=== PATIENT | female | born 1965 | race Caucasian/White ===

== ENCOUNTER 2021-04-19 09:51 | Outpatient (CLI) | payer OTHER, SELFPAY ==
[2021-04-19 10:15] VITALS: BP 112/71; PULSE 67; RESP 22; O2SAT 93
[2021-04-19 10:33] VITALS: BP 100/66; PULSE 67; RESP 22; O2SAT 92
[2021-04-19 11:31] VITALS: BP 102/65; PULSE 70; RESP 19; O2SAT 92
== END 2021-04-19 11:52 | disposition home or self-care (01) ==
LOC: OPS 09:56
PROVIDERS: Visit Provider Nurse Practitioner
DX: U07.1 COVID-19 (principal)
CPT/HCPCS: 96365

== ENCOUNTER 2021-04-22 18:04 | Inpatient (IN) | payer OTHER, SELFPAY ==
[2021-04-22] VITALS (7 sets, daily range): BP systolic 70–117; BP diastolic 43–78; PULSE 103–148; RESP 18–39; TEMP 35.7; O2SAT 85–97; BMI 20.5
--- NOTE | 2021-04-22 18:07 | XRR_ITS ---
PROCEDURE INFORMATION: Exam: XR Chest Exam date and time: 04/22/2021 6:07 PM Age: 55 years old Clinical indication: Dyspnea; Additional info: SOB, Per report, the patient is COVID-19 positive. TECHNIQUE: Imaging protocol: XR of the chest. Views: 1 view. COMPARISON: No relevant prior studies available. FINDINGS: Tubes, catheters and devices: There is an endotracheal tube with the tip 4.8 cm above the marika. Lungs: Extensive, bilateral interstitial and alveolar and areas of ground-glass opacification. Findings are commonly seen in COVID-19 pneumonia. Pleural spaces: No pleural effusion. No pneumothorax. Heart/Mediastinum: There is an enteric tube with the tip with the tip in the fundus of the stomach and the proximal port in the lower esophagus, recommend advancing the tube 5-6 cm. The cardiac silhouette is mildly enlarged. Mediastinal contours are unremarkable. Bones/joints: Elongated C7 transverse processes bilaterally. XR/XR chest 1V portable [id number] IMPRESSION: 1. Extensive, bilateral interstitial and alveolar and areas of ground-glass opacification. Findings are commonly seen in COVID-19 pneumonia. Per report, the patient is COVID-19 positive. Recommend clinical correlation. Recommend followup chest x-ray to ensure resolution. 2. There is an enteric tube with the tip with the tip in the fundus of the stomach and the proximal port in the lower esophagus, recommend advancing the tube 5-6 cm. 3. There is an endotracheal tube with the tip 4.8 cm above the marika. 4. Incidental/nonacute findings are listed in the report. COMMENTS: Urgent results were discussed with GEO Whitaker on 04/22/2021 at 9:04 PM CDT.
--- NOTE | 2021-04-22 18:07 | ECG_ITS ---
[facility] Test Date: 2021-04-22 Pat Name: Brandi Alcantara Department: Room: Gender: Female Biometric Screener: : 1965 Requested By: Andres Bolaños Order Number: [id number] Castro MD: Thanh Su M.D. Measurements Intervals [place] Rate: 129 P: 50 NE: 176 QRS: 7 QRSD: 88 T: 15 QT: 336 QTc: 493 Interpretive Statements SINUS TACHYCARDIA WITH FREQUENT VENTRICULAR PREMATURE COMPLEXES LOW QRS VOLTAGE IN PRECORDIAL LEADS [QRS DEFLECTION < 1.0 mV IN CHEST LEADS] NONSPECIFIC T-WAVE ABNORMALITY ABNORMAL RHYTHM ECG No previous ECG available for comparison Electronically Signed On 04-23-2021 17:29:04 CDT by Thanh Su M.D. [email or web address]
--- NOTE | 2021-04-22 18:11 | ED_ITS ---
Documented by User: Andres Bolaños MD 04/23/21 05:05 HPI - SOB/Dyspnea General: Source: patient and EMS Mode of arrival: EMS Limitations: no limitations History of Present Illness: HPI Narrative: 55-year-old female who diagnosed with Covid roughly 5 to 6 days ago. States she got the monoclonal antibody infusion 2 days ago. States that today she is getting much more short of breath. EMS has her on a nonrebreather she is satting 60% on that. Patient is tachypneic. She denies any chest pain. She has had body aches and fever. She history of smoking no history of known lung disease. Associated symptoms: Reports fever(s); Deny abdominal pain, chest pain, nausea or vomiting Review of Systems Const: Reports: fever(s), chills and body aches Eyes: Denies: blurry vision or eye discomfort ENMT: Denies: throat pain or dental pain Card: Denies: chest pain Resp: Reports: dyspnea and non-productive cough GI: Denies: abdominal pain, nausea, vomiting or diarrhea : Denies: dysuria Musc: Denies: neck pain or back pain Skin/Breast: Denies: rash Neuro: Denies: headache(s) Psych: Denies: depression Mohan/Lymph: Denies: easy bruising All/Imm: Denies: urticaria Physical Exam Const: COMMON NORMALS: patient oriented x3 GENERAL APPEARANCE: in distress and diaphoretic HENMT: COMMON NORMALS: normocephalic and atraumatic HEAD & SCALP: normocephalic and atraumatic Eye: COMMON NORMALS: Equal, round and reactive pupils present and EOMs intact bilaterally PUPIL: Yes Equal, round and reactive pupils present Neck/C-Spine: COMMON NORMALS: full ROM and supple Chest: COMMONS NORMALS: normal inspection of the chest and normal palpation of entire chest wall Resp: EFFORT & INSPECTION: Yes tachypneic, Yes respiratory distress and Yes labored AUSCULTATION: rales Cardio: COMMON NORMALS: regular rhythm and No murmurs present (Cardio) RATE: tachycardic RHYTHM: regular rhythm GI: COMMON NORMALS: Normal to inspection, nondistended, normoactive bowel sounds present, Soft to palpation, non-tender and no masses PALPATION: Yes Soft to palpation Extremity: COMMON NORMALS: normal to inspection and full ROM Neuro: COMMON NORMALS: patient oriented x3, moves all extremities and no focal motor deficits Psych: COMMON NORMALS: mental status grossly normal, Normal thought process present and cooperative THOUGHT PROCESS: Normal thought process present Skin: COMMON NORMALS: no rashes or lesions noted and no wounds GENERAL SKIN EXAM: no rashes or lesions noted Procedures Arterial Line Time Out Performed: Yes Size (Gauge): 18 Technique Used: guide wire technique Post-Procedure: line sutured into place Patient Tolerated Procedure: well Complications: none Site: right and femoral Course Vital Signs: Vital signs: Vital Signs Temperature 98.9 F 04/23/21 02:12 Pulse Rate 120 H 04/23/21 05:06 Respiratory Rate 18 04/23/21 05:06 Blood Pressure 99/60 04/23/21 05:06 Pulse Oximetry 94 04/23/21 05:06 MDM - SOB/Dyspnea MDM Narrative: Medical decision making narrative: Patient presents here with severe Covid pneumonia with sepsis and septic shock. Patient had central line placed and intubated and has been on multiple pressors. Patient been seen by hospitals down the ER is currently in ICU hold. Lab Data: Labs: Lab Results 04/22/21 04/22/21 04/22/21 Range/Units 18:15 18:15 18:15 WBC 22.9 H (4.0-10.0) 10^3/ uL RBC 4.26 (4.1-5.3) 10^6/u L Hgb 13.7 (11.5-15.3) g/dL Hct 45.4 (37.0-47.0) % MCV 106.6 H (81-99) fL MCH 32.2 (28.0-34.0) pg MCHC 30.2 (30.0-36.0) g/dL RDW 12.3 (12.1-15.1) % Plt Count 434 H (130-400) 10^3/c mm MPV 9.6 (7.4-10.4) fL Neut % (Auto) 69.1 % Lymph % (Auto) 22.6 % [place] % (Auto) 3.8 % Eos % (Auto) 0.1 % Baso % (Auto) 0.3 % Neut # (Auto) 15.81 H (1.8-7.7) 10^3/u L Lymph # (Auto) 5.2 H (0.8-4.8) 10^3/u L [place] # (Auto) 0.9 (0.2-0.9) 10^3/u L Eos # (Auto) 0.0 (0.0-0.8) 10^3/u L Baso # (Auto) 0.1 (0.0-0.1) 10^3/u L Nucleated RBC % (a uto) 0.4 % Nucleated RBCs # 0.1 /100WBC D-Dimer >= 20.00 H (0-0.59) ug/mIFE U Specimen Type Arterial Sample Site Radial, right ABG pH 7.10 L* (7.35-7.45) ABG pCO2 29.7 L (35-45) mmHg ABG pO2 79.5 L (80.0-100.0) mmH g ABG HCO3 9.3 L (22-26) mmol/L ABG O2 Saturation ABG Base Excess -19.1 L (-2.0-2.0) mmol/ L Jose Test Pos A-a O2 Gradient (5-10) mmHg Hematocrit 42.3 (37-47) % Hgb O2 Saturation (95-100) % Carboxyhemoglobin (0.4-20.1) %THgb Methemoglobin (0.4-1.5) % Total Hemoglobin (12-16) g/dL Ionized Calcium (1.1-1.4) mmol/L O2 Delivery Device Bipap FiO2 100.0 % Tidal Volume PEEP cmH20 Registered Public Surveyor ID Gd Sodium (136-145) mmol/L Potassium (3.5-5.1) mmol/L Chloride (98-107) mmol/L Carbon Dioxide (22-29) mmol/L Anion Gap (5-19) BUN (6-20) mg/dL Creatinine (0.5-0.9) mg/dL GFR Calculation (90-130) mL/min Glucose (65-115) mg/dL Calculated Osmolal ity (285-295) mOsm/k g Lactic Acid (0.5-2.2) mmol/L Lactate (0.5-2.2) mmol/L Calcium (8.5-10.5) mg/dL Ferritin (15-150) ng/mL Total Bilirubin (0.15-1.2) mg/dL AST (0-32) U/L ALT (0-33) U/L Alkaline Phosphata se (35-105) IU/L C-Reactive Protein (0.0-4.9) mg/L NT-Pro-B Natriuret Pep (0-125) pg/mL Total Protein (6.6-8.7) g/dL Albumin (3.5-5.2) g/dL Globulin (1.3-4.6) g/dL Procalcitonin (0-0.5) ng/mL 04/22/21 04/22/21 04/22/21 Range/Units 18:15 18:15 20:25 WBC (4.0-10.0) 10^3/ uL RBC (4.1-5.3) 10^6/u L Hgb (11.5-15.3) g/dL Hct (37.0-47.0) % MCV (81-99) fL MCH (28.0-34.0) pg MCHC (30.0-36.0) g/dL RDW (12.1-15.1) % Plt Count (130-400) 10^3/c mm MPV (7.4-10.4) fL Neut % (Auto) % Lymph % (Auto) % [place] % (Auto) % Eos % (Auto) % Baso % (Auto) % Neut # (Auto) (1.8-7.7) 10^3/u L Lymph # (Auto) (0.8-4.8) 10^3/u L [place] # (Auto) (0.2-0.9) 10^3/u L Eos # (Auto) (0.0-0.8) 10^3/u L Baso # (Auto) (0.0-0.1) 10^3/u L Nucleated RBC % (a uto) % Nucleated RBCs # /100WBC D-Dimer (0-0.59) ug/mIFE U Specimen Type Sample Site ABG pH (7.35-7.45) ABG pCO2 (35-45) mmHg ABG pO2 (80.0-100.0) mmH g ABG HCO3 (22-26) mmol/L ABG O2 Saturation ABG Base Excess (-2.0-2.0) mmol/ L Jose Test A-a O2 Gradient (5-10) mmHg Hematocrit (37-47) % Hgb O2 Saturation (95-100) % Carboxyhemoglobin (0.4-20.1) %THgb Methemoglobin (0.4-1.5) % Total Hemoglobin (12-16) g/dL Ionized Calcium (1.1-1.4) mmol/L O2 Delivery Device FiO2 % Tidal Volume PEEP cmH20 Registered Public Surveyor ID Sodium 141 (136-145) mmol/L Potassium 4.0 (3.5-5.1) mmol/L Chloride 96 L (98-107) mmol/L Carbon Dioxide 9 L (22-29) mmol/L Anion Gap 40.0 H (5-19) BUN 15 (6-20) mg/dL Creatinine 1.0 H (0.5-0.9) mg/dL GFR Calculation 57.4 L (90-130) mL/min Glucose 283 H (65-115) mg/dL Calculated Osmolal ity 303 H (285-295) mOsm/k g Lactic Acid 18.0 H* (0.5-2.2) mmol/L Lactate 9.9 H* (0.5-2.2) mmol/L Calcium 8.4 L (8.5-10.5) mg/dL Ferritin 1433 H (15-150) ng/mL Total Bilirubin 0.7 (0.15-1.2) mg/dL AST 45 H (0-32) U/L ALT 44 H (0-33) U/L Alkaline Phosphata se 108 H (35-105) IU/L C-Reactive Protein 105.0 H (0.0-4.9) mg/L NT-Pro-B Natriuret Pep 6302 H (0-125) pg/mL Total Protein 6.7 (6.6-8.7) g/dL Albumin 3.7 (3.5-5.2) g/dL Globulin 3.0 (1.3-4.6) g/dL Procalcitonin 1.68 H (0-0.5) ng/mL 04/23/21 04/23/21 04/23/21 Range/Units 01:10 04:20 04:20 WBC 23.6 H (4.0-10.0) 10^3/ uL RBC 3.97 L (4.1-5.3) 10^6/u L Hgb 12.9 (11.5-15.3) g/dL Hct 44.0 (37.0-47.0) % MCV 110.8 H (81-99) fL MCH 32.5 (28.0-34.0) pg MCHC 29.3 L (30.0-36.0) g/dL RDW 12.8 (12.1-15.1) % Plt Count 248 (130-400) 10^3/c mm MPV 9.9 (7.4-10.4) fL Neut % (Auto) 85.4 % Lymph % (Auto) 5.6 % [place] % (Auto) 3.5 % Eos % (Auto) 0.0 % Baso % (Auto) 0.7 % Neut # (Auto) 20.18 H (1.8-7.7) 10^3/u L Lymph # (Auto) 1.3 (0.8-4.8) 10^3/u L [place] # (Auto) 0.8 (0.2-0.9) 10^3/u L Eos # (Auto) 0.0 (0.0-0.8) 10^3/u L Baso # (Auto) 0.2 H (0.0-0.1) 10^3/u L Nucleated RBC % (a uto) 0.9 % Nucleated RBCs # 0.2 /100WBC D-Dimer (0-0.59) ug/mIFE U Specimen Type Sample Site ABG pH (7.35-7.45) ABG pCO2 (35-45) mmHg ABG pO2 (80.0-100.0) mmH g ABG HCO3 (22-26) mmol/L ABG O2 Saturation ABG Base Excess (-2.0-2.0) mmol/ L Jose Test A-a O2 Gradient (5-10) mmHg Hematocrit (37-47) % Hgb O2 Saturation (95-100) % Carboxyhemoglobin (0.4-20.1) %THgb Methemoglobin (0.4-1.5) % Total Hemoglobin (12-16) g/dL Ionized Calcium (1.1-1.4) mmol/L O2 Delivery Device FiO2 % Tidal Volume PEEP cmH20 Registered Public Surveyor ID Sodium 141 139 (136-145) mmol/L Potassium 4.9 5.9 H (3.5-5.1) mmol/L Chloride 100 100 (98-107) mmol/L Carbon Dioxide 13 L 14 L (22-29) mmol/L Anion Gap 32.9 H 30.9 H (5-19) BUN 14 17 (6-20) mg/dL Creatinine 1.4 H 1.7 H (0.5-0.9) mg/dL GFR Calculation 38.9 L 31.1 L (90-130) mL/min Glucose 279 H 298 H (65-115) mg/dL Calculated Osmolal ity 303 H 301 H (285-295) mOsm/k g Lactic Acid (0.5-2.2) mmol/L Lactate (0.5-2.2) mmol/L Calcium 7.2 L 7.2 L (8.5-10.5) mg/dL Ferritin (15-150) ng/mL Total Bilirubin 1.5 H (0.15-1.2) mg/dL AST 4316 H (0-32) U/L ALT 2620 H (0-33) U/L Alkaline Phosphata se 109 H (35-105) IU/L C-Reactive Protein (0.0-4.9) mg/L NT-Pro-B Natriuret Pep (0-125) pg/mL Total Protein 5.2 L D (6.6-8.7) g/dL Albumin 2.7 L (3.5-5.2) g/dL Globulin 2.5 (1.3-4.6) g/dL Procalcitonin (0-0.5) ng/mL 04/23/21 04/23/21 Range/Units 04:20 05:15 WBC (4.0-10.0) 10^3/ uL RBC (4.1-5.3) 10^6/u L Hgb (11.5-15.3) g/dL Hct (37.0-47.0) % MCV (81-99) fL MCH (28.0-34.0) pg MCHC (30.0-36.0) g/dL RDW (12.1-15.1) % Plt Count (130-400) 10^3/c mm MPV (7.4-10.4) fL Neut % (Auto) % Lymph % (Auto) % [place] % (Auto) % Eos % (Auto) % Baso % (Auto) % Neut # (Auto) (1.8-7.7) 10^3/u L Lymph # (Auto) (0.8-4.8) 10^3/u L [place] # (Auto) (0.2-0.9) 10^3/u L Eos # (Auto) (0.0-0.8) 10^3/u L Baso # (Auto) (0.0-0.1) 10^3/u L Nucleated RBC % (a uto) % Nucleated RBCs # /100WBC D-Dimer (0-0.59) ug/mIFE U Specimen Type Arterial Sample Site Femoral, right ABG pH 7.10 L* (7.35-7.45) ABG pCO2 57.0 H (35-45) mmHg ABG pO2 96.0 (80.0-100.0) mmH g ABG HCO3 17.6 L (22-26) mmol/L ABG O2 Saturation 94.9 ABG Base Excess -12.5 L (-2.0-2.0) mmol/ L Jose Test Neg A-a O2 Gradient 71.1 H (5-10) mmHg Hematocrit 41.9 (37-47) % Hgb O2 Saturation 93.6 L (95-100) % Carboxyhemoglobin 0.5 (0.4-20.1) %THgb Methemoglobin 0.9 (0.4-1.5) % Total Hemoglobin 13.7 (12-16) g/dL Ionized Calcium 0.9 L (1.1-1.4) mmol/L O2 Delivery Device Vent FiO2 100.0 % Tidal Volume 0.42 PEEP 12.0 cmH20 Registered Public Surveyor ID ellpe Sodium 137.0 (136-145) mmol/L Potassium 5.8 H (3.5-5.1) mmol/L Chloride (98-107) mmol/L Carbon Dioxide (22-29) mmol/L Anion Gap (5-19) BUN (6-20) mg/dL Creatinine (0.5-0.9) mg/dL GFR Calculation (90-130) mL/min Glucose 361.0 H (65-115) mg/dL Calculated Osmolal ity (285-295) mOsm/k g Lactic Acid (0.5-2.2) mmol/L Lactate 6.9 H* (0.5-2.2) mmol/L Calcium (8.5-10.5) mg/dL Ferritin (15-150) ng/mL Total Bilirubin (0.15-1.2) mg/dL AST (0-32) U/L ALT (0-33) U/L Alkaline Phosphata se (35-105) IU/L C-Reactive Protein (0.0-4.9) mg/L NT-Pro-B Natriuret Pep (0-125) pg/mL Total Protein (6.6-8.7) g/dL Albumin (3.5-5.2) g/dL Globulin (1.3-4.6) g/dL Procalcitonin (0-0.5) ng/mL Imaging Data^: CXR: Attestation: I personally reviewed and interpreted this imaging study as follows: Radiologist's impression: [address] [place] [address] XRay Report Signed Patient: Brandi Alcantara Unit #: [id number] : 1965 Age/Sex: 55 / F ADM Date: 04/22/21 Loc: ER Room/Bed: Attending Dr: Ordering Provider/Ordering MD: Andres Bolaños MD Date of Service: 04/22/21 Procedure(s): XR chest 1V portable [id number] Accession Number(s): [id number] Report Number: [id number] PROCEDURE INFORMATION: Exam: XR Chest Exam date and time: 04/22/2021 9:03 PM Age: 55 years old Clinical indication: Device placement; Picc; Additional info: Central line TECHNIQUE: Imaging protocol: XR of the chest. Views: 1 view. COMPARISON: CR (CHEST, ) 04/22/2021 7:08 PM FINDINGS: Tubes, catheters and devices: Interval placement of a right internal jugular central line with the tip in the SVC. The enteric tube has been advanced, the tip is now at the GE junction. Recommend advancing an additional 3-4 cm. There is an endotracheal tube with the tip 4.1 cm above the marika. Lungs: Extensive, bilateral interstitial and alveolar and areas of ground-glass opacification are stable. Findings are commonly seen in COVID-19 pneumonia. Pleural spaces: No pleural effusion. No pneumothorax. Heart/Mediastinum: Stable mild enlargement of the cardiac silhouette. Mediastinal contours are unremarkable. Bones/joints: Unremarkable for age. XR/XR chest 1V portable [id number] IMPRESSION: 1. Extensive, bilateral interstitial and alveolar and areas of ground-glass opacification are stable. Findings are commonly seen in COVID-19 pneumonia. Per report, the patient is COVID-19 positive. Recommend clinical correlation. Recommend followup chest x-ray to ensure resolution. 2. Interval placement of a right internal jugular central line with the tip in the SVC. 3. Incidental/nonacute findings are listed in the report. Dictated By: Daisy Bowen MD Signed By: Daisy Bowen MD Signed Date/Time: 04/22/212120 DD/ 19 EKG Data^: EKG 1: Attestation: I personally reviewed and interpreted this EKG as follows: EKG Interpretation Date: 04/22/21 EKG interpretation time: 18:21 Interpretation: sinus tach hr [address] or t wave abnormalities qrs 85 qtc 412 Critical Care Time Critical Care Time: Critical Care Time: Yes Total Critical Care Time: 65 Attestation: This case had a high probability of a clinically significant, sudden, or life threatening deterioration of this patient's condition which required my full and direct attention, intervention and personal management. Discharge Plan Discharge Patient Disposition: Admitted As Inpatient Clinical Impression: Pneumonia due to COVID-19 virus, Respiratory failure, Septic shock Condition: Stable Coding Level of Care Code ED Stacker Driver for Chg Fwd Exam Comprehensive Documented by User: Luz Elena Cisneros MD 04/23/21 05:26 Course Vital Signs: Vital signs: Vital Signs Temperature 98.9 F 04/23/21 02:12 Pulse Rate 120 H 04/23/21 05:06 Respiratory Rate 18 04/23/21 05:06 Blood Pressure 99/60 04/23/21 05:06 Pulse Oximetry 94 04/23/21 05:06 MDM - SOB/Dyspnea Lab Data: Labs: Lab Results 04/22/21 04/22/21 04/22/21 Range/Units 18:15 18:15 18:15 WBC 22.9 H (4.0-10.0) 10^3/ uL RBC 4.26 (4.1-5.3) 10^6/u L Hgb 13.7 (11.5-15.3) g/dL Hct 45.4 (37.0-47.0) % MCV 106.6 H (81-99) fL MCH 32.2 (28.0-34.0) pg MCHC 30.2 (30.0-36.0) g/dL RDW 12.3 (12.1-15.1) % Plt Count 434 H (130-400) 10^3/c mm MPV 9.6 (7.4-10.4) fL Neut % (Auto) 69.1 % Lymph % (Auto) 22.6 % [place] % (Auto) 3.8 % Eos % (Auto) 0.1 % Baso % (Auto) 0.3 % Neut # (Auto) 15.81 H (1.8-7.7) 10^3/u L Lymph # (Auto) 5.2 H (0.8-4.8) 10^3/u L [place] # (Auto) 0.9 (0.2-0.9) 10^3/u L Eos # (Auto) 0.0 (0.0-0.8) 10^3/u L Baso # (Auto) 0.1 (0.0-0.1) 10^3/u L Nucleated RBC % (a uto) 0.4 % Nucleated RBCs # 0.1 /100WBC D-Dimer >= 20.00 H (0-0.59) ug/mIFE U Specimen Type Arterial Sample Site Radial, right ABG pH 7.10 L* (7.35-7.45) ABG pCO2 29.7 L (35-45) mmHg ABG pO2 79.5 L (80.0-100.0) mmH g ABG HCO3 9.3 L (22-26) mmol/L ABG O2 Saturation ABG Base Excess -19.1 L (-2.0-2.0) mmol/ L Jose Test Pos A-a O2 Gradient (5-10) mmHg Hematocrit 42.3 (37-47) % Hgb O2 Saturation (95-100) % Carboxyhemoglobin (0.4-20.1) %THgb Methemoglobin (0.4-1.5) % Total Hemoglobin (12-16) g/dL Ionized Calcium (1.1-1.4) mmol/L O2 Delivery Device Bipap FiO2 100.0 % Tidal Volume PEEP cmH20 Registered Public Surveyor ID Gd Sodium (136-145) mmol/L Potassium (3.5-5.1) mmol/L Chloride (98-107) mmol/L Carbon Dioxide (22-29) mmol/L Anion Gap (5-19) BUN (6-20) mg/dL Creatinine (0.5-0.9) mg/dL GFR Calculation (90-130) mL/min Glucose (65-115) mg/dL Calculated Osmolal ity (285-295) mOsm/k g Lactic Acid (0.5-2.2) mmol/L Lactate (0.5-2.2) mmol/L Calcium (8.5-10.5) mg/dL Ferritin (15-150) ng/mL Total Bilirubin (0.15-1.2) mg/dL AST (0-32) U/L ALT (0-33) U/L Alkaline Phosphata se (35-105) IU/L C-Reactive Protein (0.0-4.9) mg/L NT-Pro-B Natriuret Pep (0-125) pg/mL Total Protein (6.6-8.7) g/dL Albumin (3.5-5.2) g/dL Globulin (1.3-4.6) g/dL Procalcitonin (0-0.5) ng/mL 04/22/21 04/22/21 04/22/21 Range/Units 18:15 18:15 20:25 WBC (4.0-10.0) 10^3/ uL RBC (4.1-5.3) 10^6/u L Hgb (11.5-15.3) g/dL Hct (37.0-47.0) % MCV (81-99) fL MCH (28.0-34.0) pg MCHC (30.0-36.0) g/dL RDW (12.1-15.1) % Plt Count (130-400) 10^3/c mm MPV (7.4-10.4) fL Neut % (Auto) % Lymph % (Auto) % [place] % (Auto) % Eos % (Auto) % Baso % (Auto) % Neut # (Auto) (1.8-7.7) 10^3/u L Lymph # (Auto) (0.8-4.8) 10^3/u L [place] # (Auto) (0.2-0.9) 10^3/u L Eos # (Auto) (0.0-0.8) 10^3/u L Baso # (Auto) (0.0-0.1) 10^3/u L Nucleated RBC % (a uto) % Nucleated RBCs # /100WBC D-Dimer (0-0.59) ug/mIFE U Specimen Type Sample Site ABG pH (7.35-7.45) ABG pCO2 (35-45) mmHg ABG pO2 (80.0-100.0) mmH g ABG HCO3 (22-26) mmol/L ABG O2 Saturation ABG Base Excess (-2.0-2.0) mmol/ L Jose Test A-a O2 Gradient (5-10) mmHg Hematocrit (37-47) % Hgb O2 Saturation (95-100) % Carboxyhemoglobin (0.4-20.1) %THgb Methemoglobin (0.4-1.5) % Total Hemoglobin (12-16) g/dL Ionized Calcium (1.1-1.4) mmol/L O2 Delivery Device FiO2 % Tidal Volume PEEP cmH20 Registered Public Surveyor ID Sodium 141 (136-145) mmol/L Potassium 4.0 (3.5-5.1) mmol/L Chloride 96 L (98-107) mmol/L Carbon Dioxide 9 L (22-29) mmol/L Anion Gap 40.0 H (5-19) BUN 15 (6-20) mg/dL Creatinine 1.0 H (0.5-0.9) mg/dL GFR Calculation 57.4 L (90-130) mL/min Glucose 283 H (65-115) mg/dL Calculated Osmolal ity 303 H (285-295) mOsm/k g Lactic Acid 18.0 H* (0.5-2.2) mmol/L Lactate 9.9 H* (0.5-2.2) mmol/L Calcium 8.4 L (8.5-10.5) mg/dL Ferritin 1433 H (15-150) ng/mL Total Bilirubin 0.7 (0.15-1.2) mg/dL AST 45 H (0-32) U/L ALT 44 H (0-33) U/L Alkaline Phosphata se 108 H (35-105) IU/L C-Reactive Protein 105.0 H (0.0-4.9) mg/L NT-Pro-B Natriuret Pep 6302 H (0-125) pg/mL Total Protein 6.7 (6.6-8.7) g/dL Albumin 3.7 (3.5-5.2) g/dL Globulin 3.0 (1.3-4.6) g/dL Procalcitonin 1.68 H (0-0.5) ng/mL 04/23/21 04/23/21 04/23/21 Range/Units 01:10 04:20 04:20 WBC 23.6 H (4.0-10.0) 10^3/ uL RBC 3.97 L (4.1-5.3) 10^6/u L Hgb 12.9 (11.5-15.3) g/dL Hct 44.0 (37.0-47.0) % MCV 110.8 H (81-99) fL MCH 32.5 (28.0-34.0) pg MCHC 29.3 L (30.0-36.0) g/dL RDW 12.8 (12.1-15.1) % Plt Count 248 (130-400) 10^3/c mm MPV 9.9 (7.4-10.4) fL Neut % (Auto) 85.4 % Lymph % (Auto) 5.6 % [place] % (Auto) 3.5 % Eos % (Auto) 0.0 % Baso % (Auto) 0.7 % Neut # (Auto) 20.18 H (1.8-7.7) 10^3/u L Lymph # (Auto) 1.3 (0.8-4.8) 10^3/u L [place] # (Auto) 0.8 (0.2-0.9) 10^3/u L Eos # (Auto) 0.0 (0.0-0.8) 10^3/u L Baso # (Auto) 0.2 H (0.0-0.1) 10^3/u L Nucleated RBC % (a uto) 0.9 % Nucleated RBCs # 0.2 /100WBC D-Dimer (0-0.59) ug/mIFE U Specimen Type Sample Site ABG pH (7.35-7.45) ABG pCO2 (35-45) mmHg ABG pO2 (80.0-100.0) mmH g ABG HCO3 (22-26) mmol/L ABG O2 Saturation ABG Base Excess (-2.0-2.0) mmol/ L Jose Test A-a O2 Gradient (5-10) mmHg Hematocrit (37-47) % Hgb O2 Saturation (95-100) % Carboxyhemoglobin (0.4-20.1) %THgb Methemoglobin (0.4-1.5) % Total Hemoglobin (12-16) g/dL Ionized Calcium (1.1-1.4) mmol/L O2 Delivery Device FiO2 % Tidal Volume PEEP cmH20 Registered Public Surveyor ID Sodium 141 139 (136-145) mmol/L Potassium 4.9 5.9 H (3.5-5.1) mmol/L Chloride 100 100 (98-107) mmol/L Carbon Dioxide 13 L 14 L (22-29) mmol/L Anion Gap 32.9 H 30.9 H (5-19) BUN 14 17 (6-20) mg/dL Creatinine 1.4 H 1.7 H (0.5-0.9) mg/dL GFR Calculation 38.9 L 31.1 L (90-130) mL/min Glucose 279 H 298 H (65-115) mg/dL Calculated Osmolal ity 303 H 301 H (285-295) mOsm/k g Lactic Acid (0.5-2.2) mmol/L Lactate (0.5-2.2) mmol/L Calcium 7.2 L 7.2 L (8.5-10.5) mg/dL Ferritin (15-150) ng/mL Total Bilirubin 1.5 H (0.15-1.2) mg/dL AST 4316 H (0-32) U/L ALT 2620 H (0-33) U/L Alkaline Phosphata se 109 H (35-105) IU/L C-Reactive Protein (0.0-4.9) mg/L NT-Pro-B Natriuret Pep (0-125) pg/mL Total Protein 5.2 L D (6.6-8.7) g/dL Albumin 2.7 L (3.5-5.2) g/dL Globulin 2.5 (1.3-4.6) g/dL Procalcitonin (0-0.5) ng/mL 04/23/21 04/23/21 Range/Units 04:20 05:15 WBC (4.0-10.0) 10^3/ uL RBC (4.1-5.3) 10^6/u L Hgb (11.5-15.3) g/dL Hct (37.0-47.0) % MCV (81-99) fL MCH (28.0-34.0) pg MCHC (30.0-36.0) g/dL RDW (12.1-15.1) % Plt Count (130-400) 10^3/c mm MPV (7.4-10.4) fL Neut % (Auto) % Lymph % (Auto) % [place] % (Auto) % Eos % (Auto) % Baso % (Auto) % Neut # (Auto) (1.8-7.7) 10^3/u L Lymph # (Auto) (0.8-4.8) 10^3/u L [place] # (Auto) (0.2-0.9) 10^3/u L Eos # (Auto) (0.0-0.8) 10^3/u L Baso # (Auto) (0.0-0.1) 10^3/u L Nucleated RBC % (a uto) % Nucleated RBCs # /100WBC D-Dimer (0-0.59) ug/mIFE U Specimen Type Arterial Sample Site Femoral, right ABG pH 7.10 L* (7.35-7.45) ABG pCO2 57.0 H (35-45) mmHg ABG pO2 96.0 (80.0-100.0) mmH g ABG HCO3 17.6 L (22-26) mmol/L ABG O2 Saturation 94.9 ABG Base Excess -12.5 L (-2.0-2.0) mmol/ L Jose Test Neg A-a O2 Gradient 71.1 H (5-10) mmHg Hematocrit 41.9 (37-47) % Hgb O2 Saturation 93.6 L (95-100) % Carboxyhemoglobin 0.5 (0.4-20.1) %THgb Methemoglobin 0.9 (0.4-1.5) % Total Hemoglobin 13.7 (12-16) g/dL Ionized Calcium 0.9 L (1.1-1.4) mmol/L O2 Delivery Device Vent FiO2 100.0 % Tidal Volume 0.42 PEEP 12.0 cmH20 Registered Public Surveyor ID [email or web address] Sodium 137.0 (136-145) mmol/L Potassium 5.8 H (3.5-5.1) mmol/L Chloride (98-107) mmol/L Carbon Dioxide (22-29) mmol/L Anion Gap (5-19) BUN (6-20) mg/dL Creatinine (0.5-0.9) mg/dL GFR Calculation (90-130) mL/min Glucose 361.0 H (65-115) mg/dL Calculated Osmolal ity (285-295) mOsm/k g Lactic Acid (0.5-2.2) mmol/L Lactate 6.9 H* (0.5-2.2) mmol/L Calcium (8.5-10.5) mg/dL Ferritin (15-150) ng/mL Total Bilirubin (0.15-1.2) mg/dL AST (0-32) U/L ALT (0-33) U/L Alkaline Phosphata se (35-105) IU/L C-Reactive Protein (0.0-4.9) mg/L NT-Pro-B Natriuret Pep (0-125) pg/mL Total Protein (6.6-8.7) g/dL Albumin (3.5-5.2) g/dL Globulin (1.3-4.6) g/dL Procalcitonin (0-0.5) ng/mL Discharge Plan Discharge Patient Disposition: Admitted As Inpatient Clinical Impression: Pneumonia due to COVID-19 virus, Respiratory failure, Septic shock Condition: Stable Coding Level of Care Code ED Stacker Driver for Rc Fwd Exam Comprehensive
[2021-04-22 18:27] LABS: Basophils # 0.1 10^3/uL (0.0-0.1); Basophils % 0.3 %; Eosinophils % 0.1 %; Hematocrit 45.4 % (37.0-47.0); Hemoglobin 13.7 g/dL (11.5-15.3); Lymphocytes # 5.2 10^3/uL (0.8-4.8); Lymphocytes % 22.6 %; Mean Corpuscular HGB Conc 30.2 g/dL (30.0-36.0); Mean Corpuscular Hemoglobin 32.2 pg (28.0-34.0); Mean Corpuscular Volume 106.6 fL (81-99); Mean Platelet Volume 9.6 fL (7.4-10.4); Monocytes # 0.9 10^3/uL (0.2-0.9); Monocytes % 3.8 %; Neutrophils # 15.81 10^3/uL (1.8-7.7); Neutrophils % 69.1 %; Nucleated Red Blood Cells # 0.1 /100WBC; Nucleated Red Blood Cells % 0.4 %; Platelet Count 434 10^3/cmm (130-400); Red Blood Count 4.26 10^6/uL (4.1-5.3); Red Cell Distribution Width 12.3 % (12.1-15.1); White Blood Count 22.9 10^3/uL (4.0-10.0)
[2021-04-22 18:30] LABS: ABG PCO2 29.7 mmHg (35-45); Arterial Blood Gas Hematocrit 42.3 % (37-47); Base Excess ABG -19.1 mmol/L (-2.0-2.0); Blood Gas Allen Test Pos; Blood Gas Operator Identificat GD; Blood Gas Sample Site Radial, right; Blood Gas Sample Type Arterial; HCO3 ABG 9.3 mmol/L (22-26); Oxygen Device BIPAP; PO2 ABG 79.5 mmHg (80.0-100.0)
[2021-04-22] MEDS: vecuronium 10 mg SDV IVP (18:30)
[2021-04-22 18:48] LABS: Slide Review Slide Review Perform
[2021-04-22] MEDS: sodium chloride 0.9% 1,000 ML 999 ML IV (18:50)
[2021-04-22 18:55] LABS: D Dimer >= 20.00 ug/mIFEU (0-0.59)
[2021-04-22 18:57] LABS: NT Pro B Type Natriuretic Pept 6302 pg/mL (0-125); Procalcitonin 1.68 ng/mL (0-0.5)
--- NOTE | 2021-04-22 19:00 | PC.NURSE ---
Verbal orders received from Dr. Bolaños to start propofol at 5 mcg/kg/minute. Verbal orders received to start fentanyl at 100 mcg per hour. Confirmed dose with Dr. Bolaños before initiating medication.
[2021-04-22] MEDS: propofol 1,000 MG/100 ML INJ 1.84 MG IV (19:03)
[2021-04-22 19:08] LABS: Alanine Aminotransferase 44 U/L (0-33); Albumin Level 3.7 g/dL (3.5-5.2); Alkaline Phosphatase 108 IU/L (35-105); Aspartate Amino Transferase 45 U/L (0-32); Blood Urea Nitrogen 15 mg/dL (6-20); Calcium 8.4 mg/dL (8.5-10.5); Chloride 96 mmol/L (98-107); Glomerular Filtration Rate 57.4 mL/min (90-130); Glucose 283 mg/dL (65-115); Osmolality Calculated 303 mOsm/kg (285-295); Sodium 141 mmol/L (136-145); Total Bilirubin 0.7 mg/dL (0.15-1.2); Total Protein 6.7 g/dL (6.6-8.7)
[2021-04-22 19:09] LABS: Carbon Dioxide 9 mmol/L (22-29)
[2021-04-22] MEDS: dexamethasone 4 mg/mL INJ 6 MG IVP (19:18)
--- NOTE | 2021-04-22 19:20 | PC.NURSE ---
VEC AND ETOMIDATE GIVEN AT 1830, PT INUBATED AT APPROX 1835. TUBE 24 AT LIP. OG TUBE PLACED.
[2021-04-22 19:21] LABS: Ferritin 1433 ng/mL (15-150)
[2021-04-22] MEDS: remdesivir 200 MG in sodium chloride 0.9% (100 ml) 100 ML 100 MG IV (20:00)
[2021-04-22 20:12] LABS: Reflex Lactate Order REFLEX LACTIC ORDERD
--- NOTE | 2021-04-22 21:03 | XRR_ITS ---
PROCEDURE INFORMATION: Exam: XR Chest Exam date and time: 04/22/2021 9:03 PM Age: 55 years old Clinical indication: Device placement; Picc; Additional info: Central line TECHNIQUE: Imaging protocol: XR of the chest. Views: 1 view. COMPARISON: CR (CHEST, ) 04/22/2021 7:08 PM FINDINGS: Tubes, catheters and devices: Interval placement of a right internal jugular central line with the tip in the SVC. The enteric tube has been advanced, the tip is now at the GE junction. Recommend advancing an additional 3-4 cm. There is an endotracheal tube with the tip 4.1 cm above the marika. Lungs: Extensive, bilateral interstitial and alveolar and areas of ground-glass opacification are stable. Findings are commonly seen in COVID-19 pneumonia. Pleural spaces: No pleural effusion. No pneumothorax. Heart/Mediastinum: Stable mild enlargement of the cardiac silhouette. Mediastinal contours are unremarkable. Bones/joints: Unremarkable for age. XR/XR chest 1V portable [id number] IMPRESSION: 1. Extensive, bilateral interstitial and alveolar and areas of ground-glass opacification are stable. Findings are commonly seen in COVID-19 pneumonia. Per report, the patient is COVID-19 positive. Recommend clinical correlation. Recommend followup chest x-ray to ensure resolution. 2. Interval placement of a right internal jugular central line with the tip in the SVC. 3. Incidental/nonacute findings are listed in the report.
[2021-04-22 21:09] LABS: Lactate (Lactic Acid level) 9.9 mmol/L (0.5-2.2)
[2021-04-22] MEDS: azithromycin 500 MG in sodium chloride 0.9% 250 ML 250 MG IV (22:00)
--- NOTE | 2021-04-22 22:06 | PC.NURSE ---
verbal order from Dr. Bolaños to increase Levophed to 20mcg/min
--- NOTE | 2021-04-22 22:13 | PC.NURSE ---
pt friend update on pt status [phone]
[2021-04-22] MEDS: cefTRIAXone 1,000 MG in sodium chloride 0.9% (plus) 50 ML 100 MG IV (22:48)
[2021-04-22] MEDS: piperacillin-tazobactam 3.375 GM in sodium chloride 0.9% (plus) 50 ML IV (23:00)
[2021-04-22] MEDS: vancomycin 1,000 MG in sodium chloride 0.9% 250 ML 250 MG IV (23:31)
[2021-04-23] VITALS (29 sets, daily range): BP systolic 48–136; BP diastolic 31–75; PULSE 88–120; RESP 17–25; TEMP 37.2; O2SAT 89–96
[2021-04-23] MEDS: DOPamine drip 400 MG/250 ML PREMIX 5.74 MG IV (01:18)
[2021-04-23] MEDS: norepinephrine 8 MG in dextrose 5 % 500 ML 57.15 MG IV (01:21)
[2021-04-23 01:42] LABS: Anion Gap 32.9 (5-19); Blood Urea Nitrogen 14 mg/dL (6-20); Calcium 7.2 mg/dL (8.5-10.5); Carbon Dioxide 13 mmol/L (22-29); Chloride 100 mmol/L (98-107); Glomerular Filtration Rate 38.9 mL/min (90-130); Glucose 279 mg/dL (65-115); Osmolality Calculated 303 mOsm/kg (285-295); Potassium 4.9 mmol/L (3.5-5.1); Sodium 141 mmol/L (136-145)
--- NOTE | 2021-04-23 02:06 | PC.NURSE ---
Assumed care of this patient at 0145 from Farheen [employer].
[2021-04-23] MEDS: sodium bicarbonate 150 MEQ in dextrose 5% 1,000 ML 100 MEQ IV (02:20)
--- NOTE | 2021-04-23 03:43 | PC.NURSE ---
patient arousing and restless. Called Dr. Cisneros and was advised to increase fentanyl to 100 mcg/hr and versed to 4mg/hr
[2021-04-23 04:27] LABS: Basophils # 0.2 10^3/uL (0.0-0.1); Basophils % 0.7 %; Hemoglobin 12.9 g/dL (11.5-15.3); Lymphocytes # 1.3 10^3/uL (0.8-4.8); Lymphocytes % 5.6 %; Mean Corpuscular HGB Conc 29.3 g/dL (30.0-36.0); Mean Corpuscular Hemoglobin 32.5 pg (28.0-34.0); Mean Corpuscular Volume 110.8 fL (81-99); Mean Platelet Volume 9.9 fL (7.4-10.4); Monocytes # 0.8 10^3/uL (0.2-0.9); Monocytes % 3.5 %; Neutrophils # 20.18 10^3/uL (1.8-7.7); Neutrophils % 85.4 %; Nucleated Red Blood Cells # 0.2 /100WBC; Nucleated Red Blood Cells % 0.9 %; Platelet Count 248 10^3/cmm (130-400); Red Blood Count 3.97 10^6/uL (4.1-5.3); Red Cell Distribution Width 12.8 % (12.1-15.1); White Blood Count 23.6 10^3/uL (4.0-10.0)
[2021-04-23 04:52] LABS: Albumin Level 2.7 g/dL (3.5-5.2); Alkaline Phosphatase 109 IU/L (35-105); Blood Urea Nitrogen 17 mg/dL (6-20); Calcium 7.2 mg/dL (8.5-10.5); Carbon Dioxide 14 mmol/L (22-29); Chloride 100 mmol/L (98-107); Globulin 2.5 g/dL (1.3-4.6); Glomerular Filtration Rate 31.1 mL/min (90-130); Glucose 298 mg/dL (65-115); Osmolality Calculated 301 mOsm/kg (285-295); Sodium 139 mmol/L (136-145); Total Bilirubin 1.5 mg/dL (0.15-1.2); Total Protein 5.2 g/dL (6.6-8.7)
[2021-04-23 05:03] LABS: Alanine Aminotransferase 2620 U/L (0-33)
[2021-04-23 05:08] LABS: Aspartate Amino Transferase 4316 U/L (0-32)
[2021-04-23 05:09] LABS: Anion Gap 30.9 (5-19); Potassium 5.9 mmol/L (3.5-5.1)
[2021-04-23 05:10] LABS: Lactate (Lactic Acid level) 6.9 mmol/L (0.5-2.2)
[2021-04-23 05:23] LABS: Alveolar-Arterial Oxygen Gradi 71.1 mmHg (5-10); Arterial Blood Gas Hematocrit 41.9 % (37-47); Base Excess ABG -12.5 mmol/L (-2.0-2.0); Blood Gas Allen Test Neg; Blood Gas Sample Site Femoral, right; Blood Gas Sample Type Arterial; Blood Gas Tidal Volume 0.42; Carboxyhemoglobin 0.5 %THgb (0.4-20.1); HCO3 ABG 17.6 mmol/L (22-26); HGB O2 Sat 93.6 % (95-100); Ionized Calcium Level - ABG 0.9 mmol/L (1.1-1.4); Methemoglobin 0.9 % (0.4-1.5); Oxygen Device VENT; Oxygen Saturation ABG 94.9; Potassium Level - ABG 5.8 mmol/L (3.5-5.0); Total Hemoglobin 13.7 g/dL (12-16)
--- NOTE | 2021-04-23 05:33 | PM.HP ---
Providers/Chief Complaint Chief Complaint: COVID +; RESP DISTRESS History of Present Illness Brandi A Young is a 55 year old female with past medical history of COVID-19 who came in with respiratory distress. Patient was apparently diagnosed 1 week prior. Appears she was on prednisone and doxycycline. Upon arrival patient was noted to be in respiratory distress. Required intubation immediately on arrival. No family at bedside. Laboratory work-up on arrival showed a WBC of 23.6, hemoglobin 12.9, hematocrit of 44.0 and a platelet count of 248. D-dimer was elevated over 20. Sodium 139, potassium of 5.9, chloride of 100, bicarb of 14, BUN of 17 and a creatinine of 1.7. Lactic acid was initially 18.0 which did improve to 6.9. Ferritin of 1433. AST of 4316, ALT of 2620. Procalcitonin was elevated 1.68. Shortly after intubation patient required pressor support. Broad spectrum abx. Review of Systems General: Reports: ROS unobtainable due to medical condition Medications/Allergies Home Medications Medication Instructions Recorded Confirmed Last Taken Type doxycycline hyclate 100 mg PO BID MDD SEE PHARMACY 04/22/21 04/22/21 Unknown History COMMENT prednisone 20 mg PO BID MDD SEE PHARMACY 04/22/21 04/22/21 Unknown History COMMENT Allergies Allergy/AdvReac Type Severity Reaction Status Date / Time Unable to Assess Allergy Unverified 04/22/21 18:58 Vitals/I&O/Wt Last Vital Signs Temp 98.9 F 04/23/21 02:12 Pulse 120 H 04/23/21 05:06 Resp 18 04/23/21 05:30 BP 99/60 04/23/21 05:06 Pulse Ox 94 04/23/21 05:06 04/22/21 04/22/21 04/23/21 14:59 22:59 06:59 Intake Total 1137.576 / 1137.576 973.118 / 2110.694 Output Total 500 / 500 Balance 1137.576 / 1137.576 473.118 / 1610.694 Weight last 48 hrs Weight 61.235 kg Physical Exam Narrative: EXAM NARRATIVE: intubated and mechanical vent HEENT; ET tube Chest : vented sounds bilaterally CVS; Sinus Abd Soft Ext: mottled Data : 04/23/21 04:20 04/23/21 04:20 A&P Assessment and plan (1) Pneumonia due to COVID-19 virus: Vancomycin pharmacy Zosyn Blood culture x 2 Lactic acid - 18.0 -> 6.9 Status: Acute (2) Acute hypoxemic respiratory failure: intubated & mechanically vented Versed Fentanyl Status: Acute (3) Septic shock: as above Status: Acute (4) Shock liver: Trend LFT Status: Acute (5) Acute renal failure: CBC Status: Acute (6) COVID-19: Remdesivir Decadron Status: Acute (7) Hyperkalemia: Calcium gluconate 1 g IV x 1 Repeat in am Status: Acute (8) Lactic acidosis: Repeat in am Status: Acute Attestations Medical Necessity Statement*: Will require continued monitoring anticipate > 2 midnight stay in hospital for eval and treatment Coding Level of Care Code Acute Supervisor Scouring Pads for [facility] Fwd Diagnoses Pneumonia due to COVID-19 virus U07.1; J12.82 Acute hypoxemic respiratory failure J96.01 Septic shock A41.9; R65.21 Shock liver K72.00 Acute renal failure N17.9 COVID-19 U07.1 Hyperkalemia E87.5 Lactic acidosis E87.2
--- NOTE | 2021-04-23 05:57 | PC.NURSE ---
Dr. Cisneros verbal order to decrease sodium bicarbonate infusion to 30 mLs/hr
[2021-04-23] MEDS: heparin 5,000 unit/mL INJ 1 mL IV (06:34)
[2021-04-23] MEDS: heparin drip 25,000 UNIT/500 ML PREMIX 17.15 UNIT IV (06:35)
[2021-04-23 06:41] LABS: SARS Covid-2 Antigen Negative (Negative)
--- NOTE | 2021-04-23 08:30 | P.TS_ITS ---
Transfer Summary Providers Date of Admission: 04/23/21 07:06 Date of Discharge: 04/23/21 Attending Provider at Admission: Luz Elena Cisneros Attending Provider at Transfer: Luz Elena Cisneros Anticipated Date of Transfer: Anticipated date of transfer: 04/23/21 Receiving Facility & Provider: Receiving Provider: [] Receiving facility: [] Diagnoses at Discharge Discharge Diagnosis (1) Pneumonia due to COVID-19 virus: Status: Acute (2) Acute hypoxemic respiratory failure: Status: Acute (3) Septic shock: Status: Acute (4) Shock liver: Status: Acute (5) Acute renal failure: Status: Acute (6) COVID-19: Status: Acute (7) Hyperkalemia: Status: Acute (8) Lactic acidosis: Status: Acute Reason for Visit Reason for Visit: COVID +; RESP DISTRESS Hospital Course Hospital Course Brandi A Young is a 55 year old female with past medical history of COVID-19 who came in with respiratory distress. Patient was apparently diagnosed 1 week prior. Appears she was on prednisone and doxycycline. Upon arrival patient was noted to be in respiratory distress. Required intubation immediately on arrival. No family at bedside. Laboratory work-up on arrival showed a WBC of 23.6, hemoglobin 12.9, hematocrit of 44.0 and a platelet count of 248. D-dimer was elevated over 20. Sodium 139, potassium of 5.9, chloride of 100, bicarb of 14, BUN of 17 and a creatinine of 1.7. Lactic acid was initially 18.0 which did improve to 6.9. Ferritin of 1433. AST of 4316, ALT of 2620. Procalcitonin was elevated 1.68. Shortly after intubation patient required pressor support. Broad spectrum abx. Patient is being transferred to [facility], Dr. Keller has accepted this patient, she carries high risk of mortality and morbidity considering sepsis, acute liver failure, COVID-19 hypoxia requiring intubation. She is being transferred back to his we do not have ICU beds at [facility]. Physical Exam Narrative: EXAM NARRATIVE: intubated and mechanical vent HEENT; ET tube Chest : vented sounds bilaterally CVS; Sinus Abd Soft Ext: mottled TS Data Data Completed and Pending: Completed Studies During Hospitalization Category Date Time Status XR chest 1V vicente ble [id number] Stat Exams 04/22/21 18:07 Completed XR chest 1V vicente ble [id number] Stat Exams 04/22/21 21:03 Completed Pending at discharge Category Date Time Status COVID [Coronaviru s Test Green Count y] Routine Lab 04/23/21 07:37 Ordered Complete Blood Co unt w/Auto AM LABS Lab 04/24/21 04:00 Ordered Comprehensive Met abolic Panel AM LA BS Lab 04/24/21 04:00 Ordered Magnesium AM LABS Lab 04/24/21 04:00 Ordered Platelet Count Q2 D Lab 04/25/21 04:00 Ordered Platelet Count Q2 D Lab 04/27/21 04:00 Ordered Procalcitonin AM LABS Lab 04/24/21 04:00 Ordered Labs from last 24 hours 04/23/21 04/23/21 04/23/21 05:41 05:15 04:20 WBC RBC Hgb Hct MCV MCH MCHC RDW Plt Count MPV Neut % (Auto) Lymph % (Auto) [place] % (Auto) Eos % (Auto) Baso % (Auto) Neut # (Auto) Lymph # (Auto) [place] # (Auto) Eos # (Auto) Baso # (Auto) Nucleated RBC % (a uto) Nucleated RBCs # D-Dimer Specimen Type Arterial Sample Site Femoral, right ABG pH 7.10 L* ABG pCO2 57.0 H ABG pO2 96.0 ABG HCO3 17.6 L ABG O2 Saturation 94.9 ABG Base Excess -12.5 L Jose Test Neg A-a O2 Gradient 71.1 H Hematocrit 41.9 Hgb O2 Saturation 93.6 L Carboxyhemoglobin 0.5 Methemoglobin 0.9 Total Hemoglobin 13.7 Ionized Calcium 0.9 L O2 Delivery Device Vent FiO2 100.0 Tidal Volume 0.42 PEEP 12.0 Concrete Mixer Operator Helper ID ellpe Sodium 137.0 Potassium 5.8 H Chloride Carbon Dioxide Anion Gap BUN Creatinine GFR Calculation Glucose 361.0 H Calculated Osmolal ity Lactic Acid Lactate 6.9 H* Calcium Ferritin Total Bilirubin AST ALT Alkaline Phosphata se C-Reactive Protein NT-Pro-B Natriuret Pep Total Protein Albumin Globulin Procalcitonin SARS-CoV-2 Ag (Rap id) Negative 04/23/21 04/23/21 04/23/21 04:20 04:20 01:10 WBC 23.6 H RBC 3.97 L Hgb 12.9 Hct 44.0 MCV 110.8 H MCH 32.5 MCHC 29.3 L RDW 12.8 Plt Count 248 MPV 9.9 Neut % (Auto) 85.4 Lymph % (Auto) 5.6 [place] % (Auto) 3.5 Eos % (Auto) 0.0 Baso % (Auto) 0.7 Neut # (Auto) 20.18 H Lymph # (Auto) 1.3 [place] # (Auto) 0.8 Eos # (Auto) 0.0 Baso # (Auto) 0.2 H Nucleated RBC % (a uto) 0.9 Nucleated RBCs # 0.2 D-Dimer Specimen Type Sample Site ABG pH ABG pCO2 ABG pO2 ABG HCO3 ABG O2 Saturation ABG Base Excess Jose Test A-a O2 Gradient Hematocrit Hgb O2 Saturation Carboxyhemoglobin Methemoglobin Total Hemoglobin Ionized Calcium O2 Delivery Device FiO2 Tidal Volume PEEP Concrete Mixer Operator Helper ID Sodium 139 141 Potassium 5.9 H 4.9 Chloride 100 100 Carbon Dioxide 14 L 13 L Anion Gap 30.9 H 32.9 H BUN 17 14 Creatinine 1.7 H 1.4 H GFR Calculation 31.1 L 38.9 L Glucose 298 H 279 H Calculated Osmolal ity 301 H 303 H Lactic Acid Lactate Calcium 7.2 L 7.2 L Ferritin Total Bilirubin 1.5 H AST 4316 H ALT 2620 H Alkaline Phosphata se 109 H C-Reactive Protein NT-Pro-B Natriuret Pep Total Protein 5.2 L D Albumin 2.7 L Globulin 2.5 Procalcitonin SARS-CoV-2 Ag (Rap id) 04/22/21 04/22/21 04/22/21 20:25 18:15 18:15 WBC RBC Hgb Hct MCV MCH MCHC RDW Plt Count MPV Neut % (Auto) Lymph % (Auto) [place] % (Auto) Eos % (Auto) Baso % (Auto) Neut # (Auto) Lymph # (Auto) [place] # (Auto) Eos # (Auto) Baso # (Auto) Nucleated RBC % (a uto) Nucleated RBCs # D-Dimer Specimen Type Sample Site ABG pH ABG pCO2 ABG pO2 ABG HCO3 ABG O2 Saturation ABG Base Excess Jose Test A-a O2 Gradient Hematocrit Hgb O2 Saturation Carboxyhemoglobin Methemoglobin Total Hemoglobin Ionized Calcium O2 Delivery Device FiO2 Tidal Volume PEEP Concrete Mixer Operator Helper ID Sodium 141 Potassium 4.0 Chloride 96 L Carbon Dioxide 9 L Anion Gap 40.0 H BUN 15 Creatinine 1.0 H GFR Calculation 57.4 L Glucose 283 H Calculated Osmolal ity 303 H Lactic Acid 18.0 H* Lactate 9.9 H* Calcium 8.4 L Ferritin 1433 H Total Bilirubin 0.7 AST 45 H ALT 44 H Alkaline Phosphata se 108 H C-Reactive Protein 105.0 H NT-Pro-B Natriuret Pep 6302 H Total Protein 6.7 Albumin 3.7 Globulin 3.0 Procalcitonin 1.68 H SARS-CoV-2 Ag (Rap id) 04/22/21 04/22/21 04/22/21 18:15 18:15 18:15 WBC 22.9 H RBC 4.26 Hgb 13.7 Hct 45.4 MCV 106.6 H MCH 32.2 MCHC 30.2 RDW 12.3 Plt Count 434 H MPV 9.6 Neut % (Auto) 69.1 Lymph % (Auto) 22.6 [place] % (Auto) 3.8 Eos % (Auto) 0.1 Baso % (Auto) 0.3 Neut # (Auto) 15.81 H Lymph # (Auto) 5.2 H [place] # (Auto) 0.9 Eos # (Auto) 0.0 Baso # (Auto) 0.1 Nucleated RBC % (a uto) 0.4 Nucleated RBCs # 0.1 D-Dimer >= 20.00 H Specimen Type Arterial Sample Site Radial, right ABG pH 7.10 L* ABG pCO2 29.7 L ABG pO2 79.5 L ABG HCO3 9.3 L ABG O2 Saturation ABG Base Excess -19.1 L Jose Test Pos A-a O2 Gradient Hematocrit 42.3 Hgb O2 Saturation Carboxyhemoglobin Methemoglobin Total Hemoglobin Ionized Calcium O2 Delivery Device Bipap FiO2 100.0 Tidal Volume PEEP Concrete Mixer Operator Helper ID Gd Sodium Potassium Chloride Carbon Dioxide Anion Gap BUN Creatinine GFR Calculation Glucose Calculated Osmolal ity Lactic Acid Lactate Calcium Ferritin Total Bilirubin AST ALT Alkaline Phosphata se C-Reactive Protein NT-Pro-B Natriuret Pep Total Protein Albumin Globulin Procalcitonin SARS-CoV-2 Ag (Rap id) Vitals: Last Vital Signs Temp 98.9 F 04/23/21 02:12 Pulse 100 04/23/21 08:11 Resp 19 H 04/23/21 08:11 BP 115/66 04/23/21 08:11 Pulse Ox 92 04/23/21 08:11 TS Medications Medications Home Medications doxycycline hyclate 100 mg PO BID MDD SEE PHARMACY COMMENT 04/22/21 [History Confirmed 04/22/21] prednisone 20 mg PO BID MDD SEE PHARMACY COMMENT 04/22/21 [History Confirmed 04/22/21] Active Medications Dexamethasone (Dexamethasone 10 Mg/Ml Inj) 6 mg IVP DAILY AIYANA Heparin Sodium (Beef Lung) (Heparin 5,000 Unit/Ml Inj 1 Ml) 0 unit IV PRN PRN; Protocol PRN Reason: Heparin weight-base protocol Last Admin: 04/23/21 06:34 Dose: 3,100 unit Documented by: Fentanyl 1,000 mcg/ Sodium (Chloride) 100 mls @ 0 mls/hr IV .Q0M AIYANA; Protocol Last Titration: 04/23/21 08:03 Dose: 25 mcg/hr, 2.5 mls/hr Documented by: Propofol (Diprivan) 1,000 mg in 100 mls @ 0 mls/hr IV .Q0M AIYANA; Protocol Last Titration: 04/22/21 23:45 Dose: 0 mcg/kg/min, 0 mls/hr Documented by: Remdesivir 100 mg/ Sodium (Chloride) 100 mls @ 100 mls/hr IV Q24H AIYANA Stop: 04/26/21 18:59 Vasopressin 100 unit/ Sodium (Chloride) 100 mls @ 0 mls/hr IV .Q0M AIYANA; Protocol Last Titration: 04/23/21 05:16 Dose: 0.06 unit/min, 3.6 mls/hr Documented by: Midazolam HCl 100 mg/ Sodium (Chloride) 100 mls @ 0 mls/hr IV .Q0M AIYANA; Protocol Last Titration: 04/23/21 03:43 Dose: 4 mg/hr, 4 mls/hr Documented by: Dopamine HCl/Dextrose (Intropin Drip) 400 mg in 250 mls @ 11.482 mls/hr IV CONT AIYANA; Protocol Last Titration: 04/23/21 02:27 Dose: 0 mcg/kg/min, 0 mls/hr Documented by: Norepinephrine Bitartrate 8 mg (/ Dextrose) 508 mls @ 0 mls/hr IV .Q0M AIYANA; Protocol Last Titration: 04/23/21 07:43 Dose: 20 mcg/min, 76.2 mls/hr Documented by: Sodium Bicarbonate 150 meq/ (Dextrose) 1,150 mls @ 100 mls/hr IV .[id number] AIYANA Last Infusion: 04/23/21 05:57 Dose: 30 mls/hr Documented by: Phenylephrine HCl 25 mg/ (Sodium Chloride) 252.5 mls @ 0 mls/hr IV .Q0M AIYANA; Protocol Heparin Sodium/Sodium Chloride (Heparin Drip) 25,000 unit in 500 mls @ 0 mls/hr IV .Q0M AIYANA; Protocol Last Admin: 04/23/21 06:35 Dose: 14 unit/kg/hr, 17.15 mls/hr Documented by: Discharge Plan Discharge Patient Disposition: Home Condition: Stable Prescriptions: Discontinued doxycycline hyclate 100 mg capsule 100 mg PO BID MDD SEE PHARMACY COMMENT RF: 0 prednisone 20 mg tablet 20 mg PO BID MDD SEE PHARMACY COMMENT RF: 0 Discharge Orders: Transfer Out of Facility (Order); Ordered 04/23/21 Ordered By: Jose Diallo Patient Instructions: Opioid Safety Transfer Attestations Time Spent in Transfer Care*: less than 30 min Quality Metrics Clinical Quality Measures: During this hospital stay, did patient experience: None Coding Level of Care Code Acute Pyridine Operator for [facility] Fwd Diagnoses Pneumonia due to COVID-19 virus U07.1; J12.82 Acute hypoxemic respiratory failure J96.01 Septic shock A41.9; R65.21 Shock liver K72.00 Acute renal failure N17.9 COVID-19 U07.1 Hyperkalemia E87.5 Lactic acidosis E87.2
--- NOTE | 2021-04-23 08:32 | PC.SOCIAL ---
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
[2021-04-23] MEDS: norepinephrine 8 MG in dextrose 5 % 500 ML 76.2 MG IV (09:05)
[2021-04-23] MEDS: dexamethasone 10 mg/mL INJ 6 MG IVP (09:07)
== END 2021-04-23 13:26 | disposition short-term general hospital (02) | DRG 871 ==
LOC: ER 22:38 → ER IP 04-23 07:07
PROVIDERS: Admitting Provider Hospitalist; Emergency Provider Emergency Medicine; Visit Provider Internal Medicine
DX: A41.89 Other specified sepsis (principal); J12.82 Pneumonia due to coronavirus disease 2019; U07.1 COVID-19; J96.01 Acute respiratory failure with hypoxia; R65.21 Severe sepsis with septic shock; K72.00 Acute and subacute hepatic failure without coma; E87.2 Acidosis; E87.5 Hyperkalemia; Z87.891 Personal history of nicotine dependence
CPT/HCPCS: 36600; 71045; 80048; 80051; 80053; 82330; 82728; 82803; 82805; 83605; 83880; 84145; 85025; 85378; 86140; 87426; 93005; 94002; 94003; 94799; 96365; 96367; 96368; 99291; 99292; C1751; J0456; J0610; J0696; J1100; J1265; J1644; J2250; J2543; J2704; J3010; J3370; J3490; J7030; J7050